=== PATIENT | male | born 1995 ===

== ENCOUNTER 2024-02-06 11:49 | Outpatient (CLI) | payer SELFPAY ==
[2024-02-06 12:25] LABS: PH,Semen 8.5 (7.3-8.3); Semen Viscosity Watery (Normal)
[2024-02-06 12:30] LABS: Motility Quality Rapid Progression (Mod-Rapid); Sperm Motility 90 % (50-90)
[2024-02-06 16:05] LABS: 3Hr Sperm Motility 90 % (50-60); Sperm Count 31 mil/mm3 (20-160)
[2024-02-06 16:06] LABS: 3Hr Motility Quality Rapid Progression (Mod-Rapid); Sperm Morphology Normal (Normal)
== END 2024-02-06 23:59 | disposition home or self-care (01) ==
PROVIDERS: PCP Emergency Medicine; Visit Provider Obstetrics & Gynecology
DX: N46.9 Male infertility, unspecified (principal)
CPT/HCPCS: 89320